=== PATIENT | female | born 1960 | race Caucasian/White ===

== ENCOUNTER → 2021-03-02 | Outpatient (CLI) | payer OTHER ==
--- NOTE | 2021-03-02 12:48 | XR ---
EXAMINATION TYPE: XR KUB DATE OF EXAM: 03/02/2021 Comparison: None Clinical History: 60-year-old female with kidney stones, N20.0 Findings: Large patient body habitus. Scattered mild to moderate stool. Nonobstructive bowel gas pattern. Supin e imaging limited for assessment of free air. Bowel content partially obscures the renal shadows. Subtle 2 mm calcification suggested at the right mid abdomen. Impression: Large patient body habitus. Bowel content largely obscures the renal shadows. Suspect a subtle 2 mm r ight renal calculus.
== END | disposition home or self-care (01) ==
LOC: RADXRMAIN 12:15
PROVIDERS: ATTEND Urology
DX: N20.0 Calculus of kidney (principal)
CPT/HCPCS: 74018